=== PATIENT | female | born 1970 | race American Indian/Alaskan Native ===

== ENCOUNTER 2020-01-10 11:36 | Outpatient (CLI) | payer OTHER ==
--- NOTE | 2020-01-10 12:58 | Ultrasound Report ---
ULTRASOUND BREAST RIGHT COMPLETE, 01/10/2020 CLINICAL INFORMATION / INDICATION: Right breast pain and clear nipple discharge. TECHNIQUE: Complete sonographic evaluation of all 4 quadrants and retroareolar region was performed. COMPARISON: Bilateral mammography 12/29/19. FINDINGS: There is a single mildly dilated duct in the right subareolar region. No intraductal lesion is seen. There is no evidence of a mass, posterior shadowing or distortion in the right breast. There are tawana ral benign-appearing lymph nodes in the right axilla. IMPRESSION: Single mildly dilated right subareolar duct without other suspicious abnormality. In view of the history of clear nipple discharge, MRI may be helpful in further evaluation. Follow up recommendation: Breast MRI BI-RADS Category 0: Incomplete. Needs additional imaging evaluation and/or prior mammograms for dhruv sinha. A normal or "negative" report should not preclude biopsy or follow-up of a clinically suspicious find ing. Signer Name: Riki Loco MD Signed: 01/10/2020 12:54 PM Workstation Name: [id number]
== END 2020-01-10 11:37 | disposition home or self-care (01) ==
LOC: SPVWC 11:36
PROVIDERS: ATTEND Surgery
DX: N64.52 Nipple discharge (principal); N64.4 Mastodynia

== ENCOUNTER 2020-02-08 08:47 | Outpatient (CLI) | payer OTHER ==
--- NOTE | 2020-02-08 12:34 | Magnetic Resonance Report ---
Bilateral breast MRI with and without contrast. History: NIPPLE DISCHARGE Bilateral breast MRI with and without contrast. History: Right clear nipple discharge, mild ductal ectasia on ultrasound in retroareolar area Procedure: Axial T1 and T2-weighted fat-sat images were obtained precontrast. 17 cc MultiHance was i njected intravenously and serial axial T1-weighted images with fat saturation were obtained postcontr ast. 3-D MIP projections, Kinetic analysis and subtraction imaging was utilized to evaluate. A [email or web address] 8 channel breast coil was utilized for image acquisition. Comparison: Right breast ultrasound 01/10/2020, bilateral mammogram 12/29/2019 Findings: Background level of enhancement is moderate. No suspicious axillary or clavicular nodes are identified. No abnormal bone marrow signal is seen. No significant chest wall enhancement is noted. Right breast: The mild ductal ectasia is seen on recent ultrasound is not clearly demonstrated today and no significant retroareolar enhancement is seen. Moderate proliferative type enhancement is noted with benign kinetics seen. No suspicious lesion is noted. Left breast: Moderate proliferative changes are seen. In the central upper breast at 12:00, 4.5 cm fr om the nipple, 6.4 cm from the chest wall, and 3.2 cm from the superior skin surface, a linearly arra nged 2 cm length and 5 mm with area of asymmetric nonmass-like enhancement is seen. Heterogenous kine tics is noted in this area. No T1-weighted or T2-weighted correlates are seen. No other suspicious le sions are seen. Impression: 1. No suspicious lesion is seen on the right to account for the history of clear nipple discharge. No enhancing ductal ectasia is noted in the retroareolar area. Clinical follow-up is suggested. 6 month follow-up right ultrasound may be useful. 2. Moderately suspicious nonmass-like enhancement in the 12:00 position of the left breast. I doubt t his would be seen by ultrasound and there is no obvious mammographic correlate on recent study. MR gu ided biopsy should be considered. BIRADS: 4: Suspicious Signer Name: Chauncey Perez MD Signed: 02/08/2020 12:29 PM Workstation Name: [id number]
== END 2020-02-08 08:48 | disposition home or self-care (01) ==
LOC: SPVIMAG 08:47
PROVIDERS: ATTEND Surgery
DX: N64.52 Nipple discharge (principal)
CPT/HCPCS: A9577; C8908; 77049

== ENCOUNTER 2020-02-29 11:45 | Outpatient (CLI) | payer OTHER ==
--- NOTE | 2020-02-29 15:31 | Mammography Report ---
DIGITAL DIAGNOSTIC MAMMOGRAM WITH CAD CONVENTIONAL, 02/29/2020 CLINICAL INFORMATION / INDICATION: POST MRI BX LT TECHNIQUE: Digital left mammographic imaging was performed. This examination was interpreted with the benefit of Computer-aided Detection analysis. COMPARISON: Left mammogram 12/29/2019, MR breast 02/08/2020 FINDINGS: Breast Density: The breasts are heterogeneously dense, which may obscure small masses. Clip from MR guided biopsy today is seen in the expected position of the MR lesion in the upper centr al breast, mid to anterior depth. IMPRESSION: Satisfactory clip placement Follow up recommendation: Per biopsy results Post biopsy imaging. A "normal" or negative report should not discourage follow up or biopsy of a clinically significant f inding. A written summary of these findings will be mailed to the patient. The patient will be entered into a mammography reporting system which will generate a reminder letter for the patient's next appointmen t at the appropriate interval. According to the [employer], yearly mammograms are recommended starting at age 40 and continuing as long as a woman is in good health. Breast MRI is recommended for women with an salena roximately 20-25% or greater lifetime risk of breast cancer, including women with a strong family his tory of breast or ovarian cancer and women who have been treated for Hodgkin's disease. Signer Name: Chauncey Perez MD Signed: 02/29/2020 3:27 PM Workstation Name: [id number]
--- NOTE | 2020-02-29 15:42 | Magnetic Resonance Report ---
MR GUIDED VACUUM-ASSISTED BIOPSY OF THE LEFT BREAST INDICATION: Abnormal enhancement in the left breast on recent MR COMPARISON: MR breast MR breast 02/08/2020 CONSENT: Procedure was discussed at length in advance with the patient including possible risks and b enefits. The possibility of bleeding was discussed. Post care issues were discussed. Opportunity for questions was given. Patient is not on anticoagulant therapy and does not report pertinent allergies. CONTRAST: 15 cc MultiHance IV PROCEDURE: Timeout was performed. The area of enhancement in the upper central left breast on recent MR was targeted on the postcontrast MR images. Using local anesthesia and aseptic technique, a [employer] 8 gauge biopsy needle was placed. Confirmation images were obtained showing satisfactory needle placement. Multiple core biopsies were performed with specimens sent for pathologic analysis. Postbio psy images showed satisfactory cavity placement. Metallic clip was placed at the site. Device was wit hdrawn and site was secured. Patient was then escorted for post biopsy mammogram. Patient tolerated t he procedure well. COMPLICATIONS: No immediate complications occurred. IMPRESSION: Successful MR guided left breast biopsy Signer Name: Chauncey Perez MD Signed: 02/29/2020 3:37 PM Workstation Name: [id number]
== END 2020-02-29 11:46 | disposition home or self-care (01) ==
LOC: SPVIMAG 11:45
PROVIDERS: ATTEND Surgery
DX: R92.1 Mammographic calcification found on diagnostic imaging of breast (principal); R92.0 Mammographic microcalcification found on diagnostic imaging of breast; N64.89 Other specified disorders of breast
CPT/HCPCS: 19085; 77065; 88305; A4648; A9577; 88341; 88342

== ENCOUNTER 2020-04-18 06:20 | Day surgery (SDC) | payer OTHER ==
[2020-04-11 08:39] LABS: Hematocrit 37.2 % (30.3-42.9); Hemoglobin 12.7 gm/dl (10.1-14.3); Mean Corpuscular HGB Conc 34 % (30-34); Mean Corpuscular Volume 93 fl (79-97); Platelet Count 282 K/mm3 (140-440); Red Blood Count 4.01 M/mm3 (3.65-5.03); Red Cell Distribution Width 13.7 % (13.2-15.2)
[~2020-04-18 06:20] MED LIST: BUPIVACAINE/PF (0.25%) 2.5 MG/ML 30 ML VIAL INFILTRATI ONE; LIDOCAINE (1%) 10 MG/1 ML VIAL 20 ML MDV INFILTRATI ONE; ceFAZolin/Water 2 GM/20 ML 2 GM/20 ML SYRINGE IV NR
[2020-04-18] MEDS ORDERED: BACTERIOSTATIC SODIUM CHLORIDE 0.9% 30 ML VIAL INFILTRATI ONE (06:34)
[2020-04-18] MEDS ORDERED: ACETAMINOPHEN 325 MG/10.15 ML ORAL LIQD UNIT DOSE PO NR (07:00)
[2020-04-18] MEDS: LACTATED RINGERS 1,000 ML IV SCH ×2 (07:00→12:10)
[2020-04-18] MEDS ORDERED: CELECOXIB 200 MG CAP PO NR (07:00)
[2020-04-18] MEDS ORDERED: GABAPENTIN 300 MG CAP PO NR (07:00)
[2020-04-18] MEDS ORDERED: MIDAZOLAM 2 MG/2 ML INJ IV NR (07:00)
[2020-04-18] MEDS ORDERED: SCOPOLAMINE TRANSDERMAL PATCH 72 HR TD NR (07:00)
--- NOTE | 2020-04-18 07:07 | Anesthesia Consultation ---
Anesthesia Consult and Med Hx Date of service: 04/18/20 - Airway Anesthetic Teeth Evaluation: Good ROM Head & Neck: Adequate Mental/Hyoid Distance: Adequate Mallampati Class: Class II Intubation Access Assessment: Good - Pulmonary Exam CTA: Yes - Cardiac Exam Cardiac Exam: RRR - Pre-Operative Health Status ASA Pre-Surgery Classification: ASA1 Proposed Anesthetic Plan: General - Pulmonary Hx Smoking: Yes - Central Nervous System Hx Psychiatric Problems: No - Other Systems Hx Cancer: No
--- NOTE | 2020-04-18 07:07 | Anesthesia Day of Surgery ---
Anesthesia Day of Surgery - Day of Surgery Patient Examined: Yes Patient H&P Reviewed: Yes Patient is NPO: Yes
[2020-04-18] MEDS ORDERED: LIDOCAINE (1%) 10 MG/1 ML VIAL 20 ML MDV ONE (07:19)
[2020-04-18] MEDS ORDERED: BUPIVACAINE/PF (0.25%) 2.5 MG/ML 30 ML VIAL INFILTRATI ONE ×2 (07:20→08:39)
[2020-04-18] MEDS ORDERED: fentaNYL 100 MCG/2 ML INJ ONE (07:31)
[2020-04-18] MEDS ORDERED: PHENYLEPHRINE/NS 1,000 MCG/10 ML SYRINGE (OR USE) IV ONE (07:31)
[2020-04-18] MEDS ORDERED: LIDOCAINE MPF (2%) 20 MG/1 ML VIAL 5 ML ONE (07:31)
[2020-04-18] MEDS ORDERED: propofoL 200 MG/20 ML VIAL IV ONE (07:31)
[2020-04-18] MEDS ORDERED: SUCCINYLCHOLINE CHLORIDE 200 MG/10 ML INJ MDV ONE (07:31)
[2020-04-18] MEDS ORDERED: GLYCOPYRROLATE 0.4 MG/2 ML INJ ONE (07:31)
[2020-04-18] MEDS ORDERED: MIDAZOLAM 2 MG/2 ML INJ ONE (08:06)
[2020-04-18] MEDS ORDERED: KETAMINE/STERILE WATER 50 MG/ML SYRINGE ONE (08:06)
[2020-04-18] MEDS ORDERED: ONDANSETRON 4 MG/2 ML INJ ONE (08:17)
[2020-04-18] MEDS ORDERED: dexAMETHasone 20 MG/5 ML VIAL ONE (08:17)
[2020-04-18] MEDS ORDERED: LIDOCAINE (1%) 10 MG/1 ML VIAL 20 ML MDV INFILTRATI ONE (08:38)
[2020-04-18] MEDS ORDERED: SODIUM CHLORIDE 0.9% IRR 1,500 ML BOTTLE IR ONE (08:45)
[2020-04-18] MEDS ORDERED: BACITRACIN ZINC OINT 28.4 GM TP ONE ×2 (09:59→10:25)
[2020-04-18] MEDS ORDERED: HYDROmorphone 1 MG/1 ML INJ ONE (10:08)
--- NOTE | 2020-04-18 10:18 | Short Stay Summary ---
Short Stay Documentation Date of service: 04/18/20 - History H&P: obtained from office - Allergies and Medications Current Medications: Allergies latex Allergy (Verified 04/18/20 08:45) Rash Home Medications Medication Instructions Recorded Confirmed Last Taken Type Acetaminophen [Tylenol] 650 mg PO Q4H PRN 04/10/20 04/10/20 Unknown History oxyCODONE /ACETAMINOPHEN [Percocet 1 tab PO Q6HR PRN #12 tablet 04/18/20 Unknown Rx 5/325] Active Medications Cefazolin Sodium (Ancef/Sterile Water 2 Gm/20 Ml) 2 gm in 20 mls @ 80 mls/hr IV PREOP NR; Protocol Stop: 04/18/20 21:00 Lactated Ringer's (Lactated Ringers) 1,000 mls @ 125 mls/hr IV DIRECT JANAY Last Admin: 04/18/20 07:00 Dose: 125 mls/hr Documented by: Midazolam HCl (Midazolam 2 Mg/2 Ml Inj) 2 mg IV PREOP NR Stop: 04/18/20 23:59 Last Admin: 04/18/20 08:00 Dose: 2 mg Documented by: - Brief post op/procedure progress note Date of procedure: 04/18/20 Pre-op diagnosis: Right nipple discharge Post-op diagnosis: same Procedure: Right nipple terminal duct excisional biopsy Anesthesia: GETA Findings: Right clear and bloody nipple discharge with terminal duct excisional biopsy Surgeon: YIN CORREIA Estimated blood loss: minimal Pathology: list (terminal duct excisional biopsy) Specimen disposition: to lab Condition: stable - Disposition Condition at discharge: Good Disposition: DC-01 TO HOME OR SELFCARE Short Stay Discharge Plan Activity: other (no heavy lifting) Diet: regular Wound: keep clean and dry (may shower in 48 hours; no baths; apply bacitracin twice daily to incision) Follow up with: YIN CORREIA MD [Staff Physician] - 7 Days Prescriptions: oxyCODONE /ACETAMINOPHEN [Percocet 5/325] 1 tab PO Q6HR PRN #12 tablet PRN Reason: Pain
--- NOTE | 2020-04-18 10:22 | Operative Report ---
Operative Report Operative Report: Date of procedure:April 18, 2020 Pre-operative diagnosis: Spontaneous right bloody/clear nipple discharge Post-operative diagnosis: Same Procedure name(s): Right nipple terminal duct excisional biopsy Surgeon: Annmarie Ruiz M.D. Assistang: Alejandro Moreau M.D. Anesthesia: Gen. Findings: Bleeding and clear nipple discharge from right nipple noted around the 9 o'clock position was appropriately identified and dissected free and sent to pathology Complications: None Drains: None Estimated blood loss: Minimal Disposition: PACU in good condition Indications for operative procedure: This is a 49 year old lady with right nipple spontaneous bloody nipple discharge. Recent diagnostic mammogram and breast ultrasound with negative findings. Breast MRI with suspisicous left breast nonmass enhancment with biopsy perforemed with benign findings. Recommendations are to proceed with a right nipple terminal duct excisional biopsy to rule out malignancy and for a definitive diagnosis. Patient wished to proceed with the above procedure. Procedure in detail: The patient was taken to the operating room. Gen. anesthesia was administered. The right breast was prepped and draped in the normal side operative fashion. The bleeding/discharging duct from the right nipple was identified around the 9 o'clock position. Lacrimal probe was inserted. A lateral periareolar incision was made with a 15 blade knife with dissection taken down to the subcutaneous tissues. First began with dissection of the tissues posterior to the nipple taken down posteriorly to 3 cm. The duct of concern was identified with a lacrimal probe appropriately inserted within discharging duct appropriately and dissected free. The terminal duct was appropriately marked using a 3-0 Vicryl stitch. The terminal duct with its surrounding tissues were removed with the aid of Bovie cautery and sent to pathology. Hemostasis was obtained with the aid of Bovie cautery. The breast cavity tissues were anesthetized with 1% lidocaine mixed with quarter percent Marcaine. The subcutaneous tissues were approximated and closed using interrupted 3-0 Vicryl and skin brought together and closed using a running 4-0 Monocryl followed by skin affix. She tolerated surgery very well and was awakened from anesthesia without any complications and transported to PACU in good condition. Right nipple with good skin perfusion.
[2020-04-18] MEDS ORDERED: ONDANSETRON 4 MG/2 ML INJ IV PRN (11:07)
[2020-04-18] MEDS ORDERED: HYDROmorphone 1 MG/1 ML INJ IV PRN (11:07)
--- NOTE | 2020-04-18 11:58 | Post Anesthesia Evaluation ---
- Post Anesthesia Evaluation Patient Participated: Yes Airway Patent: Yes Stable Respiratory Function: Yes Nausea/Vomiting: Yes Temp > 96.8F: Yes Pain Manageable: Yes Adequeate Hydration: Yes Anesthesia Complications: No Block Receding Appropriately: Not Applicable Patient on Ventilator: No
[2020-04-18] MEDS ORDERED: diphenhydrAMINE 50 MG/ML VIAL IV NR (11:59)
[2020-04-18 14:24] VITALS: BP 132/71
== END 2020-04-18 14:15 | disposition home or self-care (01) ==
LOC: OR 06:20
PROVIDERS: ATTEND Surgery
DX: N64.52 Nipple discharge (principal); N60.81 Other benign mammary dysplasias of right breast; N64.89 Other specified disorders of breast; G43.909 Migraine, unspecified, not intractable, without status migrainosus; Z86.19 Personal history of other infectious and parasitic diseases; Z79.899 Other long term (current) drug therapy; Z91.040 Latex allergy status; Z87.891 Personal history of nicotine dependence; Z98.891 History of uterine scar from previous surgery; Z98.890 Other specified postprocedural states
CPT/HCPCS: 19120; 36415; 85027; 88307; J0330; J0690; J1100; J1170; J1200; J2250; J2370; J2405; J2704; J3010; J7120; U0003; J3490

== ENCOUNTER 2020-06-17 08:35 | Emergency (ER) | payer OTHER ==
--- NOTE | 2020-06-17 08:54 | Event Note ---
ED Screening Note Date of service: 06/17/20 Time: 08:53 ED Screening Note: This pleasant 49-year-old female presents the emergency department with chief complaint of severe low back pain that is intermittent sharp and stabbing without radiation. She denies any abdominal pain, pulsatile mass, fever, chills, night sweats, headache, dizziness, blurry vision, chest pain, shortness of breath, weakness or any other associated symptoms. This initial assessment/diagnostic orders/clinical plan/treatment(s) is/are subject to change based on patients health status, clinical progression and re- assessment by fellow clinical providers in the ED. Further treatment and workup at subsequent clinical providers discretion. Patient/guardian urged not to elope from the ED as their condition may be serious if not clinically assessed and managed. Initial orders include: CBC, CMP, urinalysis
[2020-06-17 09:07] LABS: Basophils % (Auto) 0.8 % (0.0-1.8); Eosinophils % (Auto) 0.4 % (0.0-4.3); Hematocrit 43.9 % (30.3-42.9); Hemoglobin 14.9 gm/dl (10.1-14.3); Lymphocytes # (Auto) 1.1 K/mm3 (1.2-5.4); Lymphocytes % (Auto) 20.6 % (13.4-35.0); Mean Corpuscular HGB Conc 34 % (30-34); Mean Corpuscular Volume 93 fl (79-97); Monocytes # (Auto) 0.5 K/mm3 (0.0-0.8); Monocytes % (Auto) 9.4 % (0.0-7.3); Platelet Count 225 K/mm3 (140-440); Red Blood Count 4.74 M/mm3 (3.65-5.03); Red Cell Distribution Width 13.6 % (13.2-15.2)
[2020-06-17 09:07] LABS: Bacteria,Urine 1+ /HPF (Negative); Bilirubin,Urine NEG (Negative); Blood,Urine LG (Negative); Color,Urine Yellow (Yellow); Mucus,Urine FEW /HPF; Urobilinogen,Urine < 2.0 mg/dL (<2.0)
[2020-06-17 09:23] LABS: Alanine Aminotransferase 13 units/L (7-56); Albumin 3.9 g/dL (3.9-5); BUN/Creatinine Ratio 8; Blood Urea Nitrogen 6 mg/dL (7-17); Calcium 8.4 mg/dL (8.4-10.2); Hemolysis Index 21
[2020-06-17] MEDS ORDERED: CYCLOBENZAPRINE 10 MG TAB PO ONE (10:10)
[2020-06-17] MEDS ORDERED: KETOROLAC 30 MG/1 ML INJ IM ONE (10:10)
--- NOTE | 2020-06-17 10:15 | Emergency Department Report ---
HPI - General Chief Complaint: Back Pain/Injury Time Seen by Provider: 06/17/20 10:02 - HPI HPI: This is a 49-year-old -[place] female who presents to the emergency department with low back pain that has been going on since , 3 days ago. 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 However, the patient denies any known inciting event and denies any fall, trauma or obvious injury. The back pain started towards the afternoon and evening on . She says that she spent Thursday and Thursday in bed secondary to the back pain. The back pain worsens with movement. No known alleviating factors. She tried some Tylenol for her symptoms without any relief. Currently she says that the back pain is about 5 out of 10 in intensity, while at rest, and goes up to a 9 out of 10 with movement. She denies any numbness or paresthesias, problems with bowel or bladder, or any other neurological deficits. She denies any past medical history. She has a previous hysterectomy. She does not have a primary care physician. EMS was called to the house to assess her back pain and felt it was musculoskeletal but told her to have a family member bring her to the emergency department for further evaluation. ED Past Medical Hx - Past Medical History Previous Medical History?: Yes Hx Headaches / Migraines: Yes (Migraines) - Surgical History Past Surgical History?: No - Social History Smoking Status: Never Smoker Substance Use Type: None - Medications Home Medications: Home Medications Medication Instructions Recorded Confirmed Last Taken Type Acetaminophen [Tylenol] 650 mg PO Q4H PRN 04/10/20 04/10/20 Unknown History oxyCODONE /ACETAMINOPHEN [Percocet 1 tab PO Q6HR PRN #12 tablet 04/18/20 Un known Rx 5/325] Cyclobenzaprine [Flexeril] 10 mg PO TID PRN #12 tablet 06/17/20 Unknown Rx Ibuprofen [Motrin 800 MG tab] 800 mg PO Q8HR PRN #20 tablet 06/17/20 Unknown Rx ED Review of Systems ROS: Stated complaint: BACK PAIN Other details as noted in HPI Comment: All other systems reviewed and negative Constitutional: denies: chills, fever Eyes: denies: eye pain, vision change ENT: denies: ear pain, throat pain Respiratory: denies: cough, shortness of breath Cardiovascular: denies: chest pain Gastrointestinal: denies: abdominal pain, vomiting Genitourinary: denies: dysuria, discharge Musculoskeletal: back pain. denies: arthralgia Skin: denies: rash, lesions Neurological: denies: headache, weakness Physical Exam - Physical Exam Vital Signs: Vital Signs 06/17/20 08:40 Temperature 98.4 F Pulse Rate 105 H Respiratory 20 Rate Blood Pressure 140/89 O2 Sat by Pulse 96 Oximetry Physical Exam: GENERAL: The patient is well-developed well-nourished. HENT: Normocephalic. Atraumatic. Patient has moist mucous membranes. EYES: Extraocular motions are intact. NECK: Supple. Trachea is midline. CHEST/LUNGS: Clear to auscultation. There is no respiratory distress noted. HEART/CARDIOVASCULAR: Regular. There is no tachycardia. There is no murmur. ABDOMEN: Abdomen is soft, nontender. Patient has normal bowel sounds. SKIN: Skin is warm and dry. NEURO: The patient is awake, alert, and oriented. The patient is cooperative. The patient has no focal neurologic deficits. Normal speech. MUSCULOSKELETAL: There is no tenderness or deformity. There is no limitation range of motion, but patient has increased back pain with movement of the lower extremities. BACK: No midline thoracic or lumbar tenderness to palpation. There is reproduci ble lumbar paraspinal tenderness to palpation bilaterally, as well as some tenderness along the upper sacrum. ED Course Vital Signs 06/17/20 08:40 Temperature 98.4 F Pulse Rate 105 H Respiratory 20 Rate Blood Pressure 140/89 O2 Sat by Pulse 96 Oximetry - Reevaluation(s) Reevaluation #1: 06/17/20 11:18 I have reevaluated the patient about 45 minutes after she received the Toradol and Flexeril and the patient says she is feeling greatly improved. She was able to sit up, then stand up and bear weight, and then was able to ambulate. She both appears and feels stable. ED Medical Decision Making - Lab Data Result diagrams: 06/17/20 08:45 06/17/20 08:45 Lab Results 06/17/20 06/17/20 06/17/20 Range/Units 08:45 08:45 Unknown WBC 5.5 (4.5-11.0) K/mm3 RBC 4.74 (3.65-5.03) M/mm3 Hgb 14.9 H (10.1-14.3) gm/dl Hct 43.9 H (30.3-42.9) % MCV 93 (79-97) fl MCH 31 (28-32) pg MCHC 34 (30-34) % RDW 13.6 (13.2-15.2) % Plt Count 225 (140-440) K/mm3 Lymph % (Auto) 20.6 (13.4-35.0) % [place] % (Auto) 9.4 H (0.0-7.3) % Eos % (Auto) 0.4 (0.0-4.3) % Baso % (Auto) 0.8 (0.0-1.8) % Lymph # (Auto) 1.1 L (1.2-5.4) K/mm3 [place] # (Auto) 0.5 (0.0-0.8) K/mm3 Eos # (Auto) 0.0 (0.0-0.4) K/mm3 Baso # (Auto) 0.0 (0.0-0.1) K/mm3 Seg Neutrophils % 68.8 (40.0-70.0) % Seg Neutrophils # 3.8 (1.8-7.7) K/mm3 Sodium 136 L (137-145) mmol/L Potassium 4.3 (3.6-5.0) mmol/L Chloride 102.6 (98-107) mmol/L Carbon Dioxide 23 (22-30) mmol/L Anion Gap 15 mmol/L BUN 6 L (7-17) mg/dL Creatinine 0.8 (0.6-1.2) mg/dL Estimated GFR > 60 ml/min BUN/Creatinine Ratio 8 % Glucose 98 (65-100) mg/dL Calcium 8.4 (8.4-10.2) mg/dL Total Bilirubin 0.30 (0.1-1.2) mg/dL AST 18 (5-40) units/L ALT 13 (7-56) units/L Alkaline Phosphatase 61 (35-129) units/L Total Protein 7.2 (6.3-8.2) g/dL Albumin 3.9 (3.9-5) g/dL Albumin/Globulin Ratio 1.2 % Urine Color Yellow (Yellow) Urine Turbidity Slightly-cloudy (Clear) Urine pH 6.0 (5.0-7.0) Ur Specific [place] 1.021 (1.003-1.030) Urine Protein 30 mg/dl (Negative) mg/dL Urine Glucose (UA) Neg (Negative) mg/dL Urine Ketones Neg (Negative) mg/dL Urine Blood Lg (Negative) Urine Nitrite Neg (Negative) Urine Bilirubin Neg (Negative) Urine Urobilinogen < 2.0 (<2.0) mg/dL Ur Leukocyte Esterase Sm (Negative) Urine WBC (Auto) 8.0 H (0.0-6.0) /HPF Urine RBC (Auto) 136.0 (0.0-6.0) /HPF U Epithel Cells (Auto) 24.0 H (0-13.0) /HPF Urine Bacteria (Auto) 1+ (Negative) /HPF Urine Mucus Few /HPF Urine Yeast (Budding) Few /HPF - Medical Decision Making This patient presents to the emergency department with a 3 to 4-day history of low back pain. On examination there is no midline thoracic or lumbar tenderness to palpation. There is some reproducible lumbar and sacral paraspinal t enderness to palpation. The patient denies any problems with bowel or bladder, numbness or paresthesias or any neurological deficits. She has full motor strength to all 4 extremities. As there was no fall, injury, trauma, or obvious inciting event, and there is no midline tenderness to palpation or any deficits, I did not feel that any imaging of the spine was necessary at this time. The patient was given a shot of Toradol and a dose of Flexeril. She was reevaluated about 45 to 50 minutes after medication administration and the patient says that she is feeling improved. She was able to sit up, stand up, and ambulate without any significant difficulty. She was seen ambulatory in the emergency department and both appears and feels stable. The patient had some blood work that was ordered and performed through triage. The CBC and metabolic panel are unremarkable. Urinalysis did not show any urinary tract infection but there was some hematuria found. There was no flank pain or any radiation of her pain around towards the abdomen. This all does not appear consistent with kidney stones, especially as it would have to be bilateral. I discussed the laboratory findings with the patient and she understands that she will need to follow-up with her primary care physician and possibly urology regarding the hematuria. She has been given a prescription for Flexeril and ibuprofen and an outpatient referral for Dr. Paige, a local neurosurgeon. She will return to the emergency department with any worsening of her symptoms or with any acute distress. Critical Care Time: No Critical care attestation.: If time is entered above; I have spent that time in minutes in the direct care of this critically ill patient, excluding procedure time. ED Disposition Clinical Impression: Muscle spasm Low back pain Qualifiers: Chronicity: unspecified Back pain laterality: bilateral Sciatica presence: unspecified whether sciatica present Qualified Code(s): M54.5 - Low back pain Disposition: TO HOME OR SELFCARE Is pt being admited?: No Condition: Stable Instructions: Acute Back Pain, Adult Additional Instructions: I have given you a referral for a local primary care physician and a local primary care clinic. I have also given you a referral for a local neurosurgeon, Dr. Paige, to follow-up regarding your low back pain. You have been prescribed a medication that is sedating and therefore should not be taken prior to driving, working, and responsible for children and in no way should be mixed with alcohol of any quantity. Return to the emergency department with any worsening of your symptoms, new or concerning symptoms not addressed during this current emergency department visit, or with any acute distress. Prescriptions: Cyclobenzaprine [Flexeril] 10 mg PO TID PRN #12 tablet PRN Reason: Muscle Spasm Ibuprofen [Motrin 800 MG tab] 800 mg PO Q8HR PRN #20 tablet PRN Reason: Pain , Severe (7-10) Referrals: SANDRA PAIGE II, MD [Staff Physician] - 2-3 Days JELENA MATSON MD [Staff Physician] - 2-3 Days [facility] [Provider Group] - 2-3 Days Forms: Work/School Release Form(ED) Time of Disposition: 11:21
[2020-06-17 11:44] VITALS: BP 114/56
== END 2020-06-17 11:40 | disposition home or self-care (01) ==
LOC: ED 08:35
DX: M54.5 Low back pain (principal); M62.830 Muscle spasm of back; G43.909 Migraine, unspecified, not intractable, without status migrainosus; Z79.1 Long term (current) use of non-steroidal anti-inflammatories (NSAID); Z79.899 Other long term (current) drug therapy; Z91.040 Latex allergy status
CPT/HCPCS: 36415; 80053; 81001; 85025; 96372; 99283; J1885